=== PATIENT | female | born 1965 | race Caucasian/White ===

== ENCOUNTER 2018-02-21 08:49 | Day surgery (SDC) | payer OTHER ==
[2018-02-20 11:30] VITALS: BMI 20.7
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
[2018-02-21] MEDS ORDERED: CEFAZOLIN/Water 2 GM/20 ML SYRINGE ONE ×2 (09:51→14:18)
[2018-02-21] MEDS ORDERED: Fentanyl 100 MCG/2 ML VIAL ONE ×2 (09:52→11:52)
[2018-02-21] MEDS ORDERED: PROPOFOL 200 MG/20 ML VIAL ONE (09:53)
[2018-02-21] MEDS ORDERED: ePHEDrine/0.9% NaCl/PF SYRINGE 50 mg/10 ml ONE (09:53)
[2018-02-21] MEDS ORDERED: Dexamethasone 20 MG/5 ML VIAL ONE (09:53)
[2018-02-21] MEDS ORDERED: Succinylcholine Chloride 20 MG/ML 10 ml SYRINGE FS ONE (09:53)
[2018-02-21] MEDS ORDERED: Lidocaine 1% PF 5 ML VIAL ONE (09:53)
[2018-02-21] MEDS ORDERED: Ondansetron HCl/PF 4 MG/2 ML Vial ONE (09:53)
[2018-02-21] MEDS ORDERED: PHENYLEPHRINE-NS 100 MCG/ML 10 ML SYRINGE ONE (09:53)
[2018-02-21] MEDS ORDERED: Metoclopramide HCl 10 MG/2 ML VIAL ONE (09:53)
[2018-02-21] MEDS ORDERED: HYDROmorphone 0.5 MG/0.5 ML SYRINGE ONE (11:26)
--- NOTE | 2018-02-21 12:12 | OP ---
DATE OF PROCEDURE: 02/21/2018 SURGEON: Maxwell Moody M.D. MEDICAL PRACTICE MANAGER: Jun Epps PA-C. INDICATION: Pain. DIAGNOSES: Cervical radiculopathy and cervical spondylolisthesis with neck pain. PROCEDURE: C4-C6 anterior cervical discectomy and fusion. ANESTHESIA: General. TECHNIQUE: The patient was brought into the operating room and placed under anesthesia. She was [place] on table in supine position. A transverse incision was planned over the lateral aspect of the ne ck on the right. After prepping and draping and after an appropriate operative pause, the incision w as created. The underlying platysma muscle was identified and incised. A blunt tissue plane anterio r to the sternocleidomastoid muscle was used to gain access to the prevertebral space. Self-retainin g retractors were placed in the wound for optimal exposure. After confirming the appropriate levels with C-arm fluoroscopy, an annulotomy was performed in the C5-C6 disk space. All disk material as we ll as anterior and posterior osteophytes were removed. A 6-mm lordotic PEEK cage packed with allogra ft and autograft material was placed within the space under a slight degree of distraction. We then redirected our attention to the C4-C5, where again an annulotomy was performed. All disk material as well as anterior and posterior osteophytes were removed. After complete decompression, a 7-mm lordo tic PEEK cage packed with allograft and autograft material was placed into the interbody space. An a nterior cervical plate was then fashioned to the front of the spine and secured with a total of 6 scr ews. Midline and lateral structures were inspected and found to be free from significant trauma. Wo und was irrigated. Hemostasis maintained throughout. The wound was then closed in anatomic layers a nd a pressure dressing was applied. There were no known procedural complications.
[2018-02-21] MEDS ORDERED: HYDROmorphone 2 MG/ML VIAL ONE (12:21)
[2018-02-21] MEDS ORDERED: Acetaminophen/Codeine 30-300mg Tablet ONE (14:18)
== END 2018-02-21 15:10 | disposition home or self-care (01) ==
LOC: SDC 08:49
PROVIDERS: ATTEND Neurological Surgery
PROC: 0RB30ZZ Excision of Cervical Vertebral Disc, Open Approach (ICD-10-PCS; principal; 2018-02-21)
PROC: 0RG2070 Fusion of 2 or more Cervical Vertebral Joints with Autologous Tissue Substitute, Anterior Approach, Anterior Column, Open Approach (ICD-10-PCS; principal; 2018-02-21)
PROC: 0RG20A0 Fusion of 2 or more Cervical Vertebral Joints with Interbody Fusion Device, Anterior Approach, Anterior Column, Open Approach (ICD-10-PCS; principal; 2018-02-21)
PROC: 0RG20J0 Fusion of 2 or more Cervical Vertebral Joints with Synthetic Substitute, Anterior Approach, Anterior Column, Open Approach (ICD-10-PCS; principal; 2018-02-21)
DX: M43.12 Spondylolisthesis, cervical region (principal); M54.12 Radiculopathy, cervical region; M19.90 Unspecified osteoarthritis, unspecified site; J45.909 Unspecified asthma, uncomplicated; E03.9 Hypothyroidism, unspecified; Z88.5 Allergy status to narcotic agent; Z88.8 Allergy status to other drugs, medicaments and biological substances; Z79.899 Other long term (current) drug therapy
CPT/HCPCS: 76001; 96374; 96375; C1713; C1776; J1100; J1170; J2001; J2405; J2704; J2765; J3010

== ENCOUNTER 2018-04-03 08:41 | Outpatient (CLI) | payer OTHER ==
--- NOTE | 2018-04-03 09:25 | RAD ---
RADIOGRAPH CERVICAL SPINE 3 VIEWS: Date: 04/03/18 HISTORY: 52-year-old female with M54.12 cervical radiculopathy. COMPARISON: None available. FINDINGS: Anterior metallic plate and screws at C4, C5, and C6. Small metallic markers for interbody graft/cage at the C4-5 and C5-6 disc spaces. The posterior marker at the C4-5 level is at the far posterior mar gin of the disc space. There is a slight Grade I anterolisthesis of C4 on C5. There are degenerative facet changes bilaterally, mild and moderate. Vertebral body heights are maintained. No prevertebral soft tissue swelling. No high grade disc space narrowing at any level. IMPRESSION: Status post anterior cervical diskectomy and fusion at C4-5-6. FRANCIA [] POS: [facility]
== END 2018-04-03 08:42 | disposition home or self-care (01) ==
LOC: TBSIIMAG 08:41
PROVIDERS: ATTEND Neurological Surgery
DX: M54.12 Radiculopathy, cervical region (principal); Z98.890 Other specified postprocedural states
CPT/HCPCS: 72040

== ENCOUNTER 2018-04-07 09:43 | Outpatient (CLI) | payer OTHER ==
--- NOTE | 2018-04-07 15:33 | RAD ---
ADDENDUM: Further evaluation with speech pathologist is recommended. POS: [facility]
--- NOTE | 2018-04-08 12:27 | RAD ---
BARIUM SWALLOW ESOPHAGRAM: HISTORY: Esophageal dysphagia. Recent cervical spine surgery. EXPOSURE: 0.8 minutes 1.837 Gy per cm2. FINDINGS: Initial chemical pumper radiograph demonstrates a normal cardiac silhouette. The pulmonary vessels and hilum a re normal. The costophrenic angles are clear. No consolidation or mass. No pneumothorax or osseous abnormalities. Cervical fusion hardware is noted. The thoracic esophagus has an overall normal course and caliber. No mucosal abnormality. There is evidence of significant aspiration with the thick barium. Given aspiration with thick bariu m, the remainder of the study was not completed at this time. Further evaluation with speech pathologist is recommended. IMPRESSION: Significant aspiration with thick barium. POS: [facility]
== END 2018-04-07 09:44 | disposition home or self-care (01) ==
LOC: RAD 09:43
PROVIDERS: ATTEND Specialist
DX: R13.14 Dysphagia, pharyngoesophageal phase (principal)
CPT/HCPCS: 74220

== ENCOUNTER 2018-05-15 11:22 | Day surgery (SDC) | payer OTHER ==
[2018-05-14 14:09] VITALS: BMI 19.5
[2018-05-15] MEDS ORDERED: Lidocaine 1% w/Epinephrine 1:100K 30 ML VIAL ONE (12:16)
[2018-05-15] MEDS ORDERED: Fentanyl 100 MCG/2 ML VIAL ONE (12:20)
[2018-05-15] MEDS ORDERED: Midazolam HCl 2 mg/2 ml Vial ONE (12:20)
[2018-05-15] MEDS ORDERED: PHENYLEPHRINE-NS 100 MCG/ML 10 ML SYRINGE ONE ×2 (13:25→19:54)
[2018-05-15] MEDS ORDERED: Ondansetron PF 4 MG/2 ML Vial ONE (19:54)
[2018-05-15] MEDS ORDERED: CEFAZOLIN 1 GM VIAL ONE (19:54)
[2018-05-15] MEDS ORDERED: Dexamethasone 20 MG/5 ML VIAL ONE (19:54)
[2018-05-15] MEDS ORDERED: PROPOFOL 200 MG/20 ML VIAL ONE (19:54)
[2018-05-15] MEDS ORDERED: Succinylcholine Chloride 20 MG/ML 10 ml SYRINGE FS ONE (19:54)
[2018-05-15] MEDS ORDERED: ePHEDrine/0.9% NaCl/PF SYRINGE 50 mg/10 ml ONE (19:54)
[2018-05-15] MEDS ORDERED: Lidocaine 1% PF 5 ML VIAL ONE (19:54)
[2018-05-15] MEDS ORDERED: Sterile Water 10 ML VIAL ONE (19:54)
--- NOTE | 2018-05-16 10:48 | OP ---
DATE OF PROCEDURE: 05/15/2018 PREOPERATIVE DIAGNOSES: Primary hyperparathyroidism, left inferior retrothyroid mass. PROCEDURES PERFORMED: Left neck exploration with removal of left inferior retrothyroid mass and parathyroidectomy. DESCRIPTION OF PROCEDURE: After consent was obtained, the patient was identified and brought to the operating room and placed in the operating room table in supine position. General endotracheal anesthesia was obtained. The patient was positioned, prepped and draped with the laryngeal nerve monitoring, endotracheal tube was placed and secured to be functioning well. Prior to surgery, the x-rays were reviewed in detail with Dr. Burgos, and we identified the left inferior retrothyroid mass that could represent a parathyroid adenoma. The patient was prepped and draped in position for surgery and incision was made in the natural skin crease and carried down through the skin, subcutaneous tissues, and strap muscles. Subplatysmal flaps were elevated and standard retractor was placed. We then identified the thyroid gland, and we were able to dissect the strap muscles from the surrounding thyroid gland. The thyroid was then mobilized medially, and we dissected into the tracheoesophageal region, where the suspected mass was identified. Small mass was encountered exactly at the site on the CT scan, it was removed and sent for permanent section. No other abnormalities were identified in the region and the recurrent laryngeal nerve was identified and preserved. The wound was then closed after hemostasis was obtained. Fibrillar Surgicel was placed in the deep aspect of the wound and the strap muscles and platysma were reapproximated with Monocryl and the skin with 6-0 Prolene. The patient was awakened. Sterile dressing was applied. After the sterile dressing was applied, the patient was taken to the recovery room in stable condition for discharge home with an intact voice. Job ID: [id number]
--- NOTE | 2018-06-01 09:00 | EKG ---
Test Reason : PREOP Blood Pressure : / mmHG Vent. Rate : 085 BPM Atrial Rate : 085 BPM P-R Int : 220 ms QRS Dur : 086 ms QT Int : 374 ms P-R-T Axes : 073 064 054 degrees QTc Int : 445 ms Sinus rhythm with 1st degree A-V block Otherwise normal ECG When compared with ECG of 04-DEC-2010 15:32, No significant change was found Confirmed by KELSIE HERNANDEZ, FUNMI ([id number]) on 06/01/2018 8:59:38 AM Referred By: ROBERTO Confirmed By:FUNMI IGLESIAS MD
--- NOTE | 2018-06-06 06:35 | PQF ---
[facility] POST DISCHARGE CLINICAL DOCUMENTATION IMPROVEMENT CLARIFICATION FORM l Todays Date: 06/06/18 l Patients Name AGATA BARRAZA l l Admit Date 05/15/18 l Disch Date 05/15/18 Betting Agency Counter Clerk Name Cornelius Friend Email: [email or web address] [email or web address]: [phone] To be completed by Betting Agency Counter Clerk: Present Clinical Indicators - Signs / Symptoms Results and Location in Medical Record [ ] Documentation of: [ ] [ ] Documentation of: [ ] [ ] Documentation of: [ ] [ ] Documentation of: [ ] [ ] Risks [ ] [ ] [ ] Treatment [ ] LEFT INFERIOR RETROTHYROID MASS QUERY FOR SIZE OF EXCISED RETROTHYROID LESION WITH MARGINS CLARIFICATION FOR DIAGNOSIS OF RETROTHYROID MASS CLARIFICATION IF A PARATHYROIDECTOMY WAS DONE DURING THE SAME OPERATIVE SESSION. [ ] [ ] To be completed by Physician: GONZÁLEZ DIXON The documentation in this patients record requires clarification to ensure coding compliance and accuracy. Check the appropriate box and include in your discharge summary. [ ] [ ] [ ] [ ] Please check this box if this does not apply to this patient [ ] Unable to determine [ ] Other diagnosis: Review the following information and exercise your independent professional judgment in responding to the clarification. Based upon the clinical findings, risk factors, and treatment, please clarify if you are treating one of the above probable or suspected diagnoses. Physician Signature: Date Time MTDD
== END 2018-05-15 15:41 | disposition home or self-care (01) ==
LOC: SDC 11:22
PROVIDERS: ATTEND Specialist
PROC: 0KB30ZZ Excision of Left Neck Muscle, Open Approach (ICD-10-PCS; principal; 2018-05-15)
DX: M79.89 Other specified soft tissue disorders (principal); E21.0 Primary hyperparathyroidism; E03.9 Hypothyroidism, unspecified; G93.5 Compression of brain; M32.9 Systemic lupus erythematosus, unspecified; Z87.891 Personal history of nicotine dependence; Z88.5 Allergy status to narcotic agent; Z91.048 Other nonmedicinal substance allergy status; Z98.1 Arthrodesis status; Z98.84 Bariatric surgery status; Z90.710 Acquired absence of both cervix and uterus; Z90.49 Acquired absence of other specified parts of digestive tract; Z90.89 Acquired absence of other organs; Z79.51 Long term (current) use of inhaled steroids; Z79.899 Other long term (current) drug therapy
CPT/HCPCS: 36415; 85014; 88304; 93005; 93010; A4216; J0690; J1100; J2001; J2250; J2405; J2704; J3010

== ENCOUNTER 2018-06-03 09:51 | Outpatient (CLI) | payer OTHER ==
--- NOTE | 2018-06-05 10:25 | RAD ---
MODIFIED BARIUM SWALLOW: HISTORY: Dysphagia, pharyngoesophageal phase, Chiari-I malformation. FINDINGS: Exam is performed by speech pathology with multiple consistencies. Video review is available and dem onstrates early spill of contrast with some delay in initiation of swallowing. There is deep penetra tion with multiple consistencies. The contrast extends to the level of the larynx on multiple occasi ons with trace aspiration suspected. No coughing is evident on fluoroscopy. Postoperative changes of the cervical spine without significant obstruction of the esophagus. Signif icant pooling within the valleculae and piriform sinuses with partial clearing upon secondary swallow ing. Frontal view fluoroscopy is shown at the end of the exam with the aortic arch projecting to the right of midline. It is not clear if the fluoroscopic image is reversed. The esophagus below the level of the hypopharynx was not evaluated. Please see separate detailed rep ort from speech pathology. Fluor time 27.5 seconds. POS: [facility]
== END 2018-06-03 09:52 | disposition home or self-care (01) ==
PROVIDERS: ATTEND Specialist
DX: R13.14 Dysphagia, pharyngoesophageal phase (principal); E46 Unspecified protein-calorie malnutrition
CPT/HCPCS: 74230